=== PATIENT | female | born 1960 | race Caucasian/White ===

== ENCOUNTER 2018-07-05 08:11 | Outpatient (CLI) | payer OTHER | END 2018-07-05 08:12 | disposition home or self-care (01) | LOC: SONOGRAMA 08:11 | DX: D09.3 Carcinoma in situ of thyroid and other endocrine glands (principal) ==

== ENCOUNTER 2018-07-05 10:01 | Outpatient (CLI) | payer OTHER | END 2018-07-05 13:21 | disposition HB | LOC: LAB 10:01 | DX: C73 Malignant neoplasm of thyroid gland (principal); E89.0 Postprocedural hypothyroidism ==

== ENCOUNTER 2018-07-07 13:25 | Outpatient (CLI) | payer OTHER | END 2018-07-07 14:00 | disposition home or self-care (01) | LOC: NUCLEAR 13:25 | DX: C73 Malignant neoplasm of thyroid gland (principal); E89.0 Postprocedural hypothyroidism | CPT/HCPCS: 78018; 78020; A9528 ==